=== PATIENT | male | born 1965 | race Hispanic/Latino ===

== ENCOUNTER 2017-01-06 07:42 | Day surgery (SDC) | payer OTHER ==
[2017-01-06] MEDS ORDERED: Lactated Ringer's 500 ML IV ONE (08:38)
[2017-01-06] MEDS ORDERED: Midazolam 2 MG/2 ML VIAL ONE (10:56)
[2017-01-06] MEDS ORDERED: Propofol 10 mg/ml Inj (20 ML) ONE (10:56)
[2017-01-06 11:23] VITALS: TEMP 97.5
[2017-01-06 11:32] VITALS: BP 129/70; PULSE 75; RESP 15; O2SAT 98
== END 2017-01-06 12:01 | disposition home or self-care (01) ==
LOC: H.ENDO 07:42
PROVIDERS: ATTEND Internal Medicine Gastroenterology
DX: Z12.11 Encounter for screening for malignant neoplasm of colon (principal); M10.9 Gout, unspecified; K64.0 First degree hemorrhoids
CPT/HCPCS: 45378; J2001; J2250; J2704; J7120